=== PATIENT | female | born 1960 | race Caucasian/White ===

== ENCOUNTER 2018-06-18 09:20 | Inpatient (IN) | payer OTHER ==
[~2018-06-18] VITALS: Ht 162.6 cm; Wt 58.1 kg
[2018-06-18] MEDS ORDERED: TRIGLIDE160 MG (10:02)
[2018-06-18] MEDS ORDERED: ZEGERID 40 MG1 EACH (10:02)
[2018-06-18] MEDS ORDERED: COZAAR100 MG (10:02)
[2018-06-18] MEDS ORDERED: PRAVASTATIN SOD40 MG (10:02)
[2018-06-18] MEDS ORDERED: ASPIR 8181 MG (10:03)
[2018-07-01] MEDS ORDERED: INTESTINEX680 M1 PO (08:37)
== END 2018-07-01 22:31 | disposition home or self-care (01) | DRG 330 ==
LOC: SURG 06-24 05:21 → O/R 06-24 05:21 → SURG 06-24 10:38
PROVIDERS: ADMIT Colon & Rectal Surgery
PROC: 0DQN4ZZ Repair Sigmoid Colon, Percutaneous Endoscopic Approach (ICD-10-PCS; 2018-06-24)
PROC: 0DTN4ZZ Resection of Sigmoid Colon, Percutaneous Endoscopic Approach (ICD-10-PCS; principal; 2018-06-24 07:00)
DX: K57.32 Diverticulitis of large intestine without perforation or abscess without bleeding (principal); K91.72 Accidental puncture and laceration of a digestive system organ or structure during other procedure; J95.89 Other postprocedural complications and disorders of respiratory system, not elsewhere classified; J98.11 Atelectasis; R09.02 Hypoxemia; N73.6 Female pelvic peritoneal adhesions (postinfective); I10 Essential (primary) hypertension; E78.00 Pure hypercholesterolemia, unspecified

== ENCOUNTER 2019-07-31 05:50 | Day surgery (SDC) | payer OTHER ==
[~2019-07-31 05:50] MED LIST: ASPIR 8181 MG; COZAAR100 MG; INTESTINEX680 M1 PO; PRAVASTATIN SOD40 MG; TRIGLIDE160 MG; ZEGERID 40 MG1 EACH
== END 2019-07-31 11:23 | disposition home or self-care (01) ==
LOC: AMB-ENDOS 05:50 → CIR.AMB 12:00 → AMB-ENDOS 12:00
DX: K57.32 Diverticulitis of large intestine without perforation or abscess without bleeding (principal); K57.30 Diverticulosis of large intestine without perforation or abscess without bleeding; K64.1 Second degree hemorrhoids